=== PATIENT | female | born 1990 | race Caucasian/White ===

== ENCOUNTER 2021-04-23 10:00 | Emergency (ER) | payer OTHER, SELFPAY ==
[2021-04-23 10:10] VITALS: BP 132/96; PULSE 91; RESP 14; TEMP 37.1; O2SAT 98
--- NOTE | 2021-04-23 10:36 | ED.EYEPROB ---
HPI - Eye Problem General Chief complaint: Eye Problems Stated complaint: Eye Problem Time Seen by Provider: 04/23/21 10:24 Source: patient and RN notes reviewed Mode of arrival: ambulatory Limitations: no limitations History of Present Illness HPI Narrative: Patient presents today complaining of right eye redness, itching, and white drainage with right maxillary sinus tenderness since yesterday. 1 week ago she was seen at a different urgent care for right neck lymph node tenderness and swelling. She had negative influenza and strep tests at that time and was told she strained her neck and has been treating herself as such. Since yesterday she has been treating her eye with [id number] eyedrops with mild relief. She has removed her contacts and has been wearing her glasses. Denies foreign body sensation or vision changes. MD chief complaint: eye redness Related Data Home Medications Medication Instructions Recorded Confirmed citalopram 20 mg PO DAILY 04/23/21 04/23/21 labetalol 200 mg PO Q12H 04/23/21 04/23/21 Allergies Allergy/AdvReac Type Severity Reaction Status Date / Time No Known Allergies Allergy Verified 04/23/21 10:16 Review of Systems Review of Systems: CONSTITUTIONAL: Denies body aches, fever, chills, or sweats. EYES: Denies visual changes. + Right eye redness, drainage. ENT: Denies rhinorrhea, congestion, sore throat, or otalgia.+ Right maxillary sinus tenderness CARDIOVASCULAR: Denies chest pain, palpitations, or edema. RESPIRATORY: Denies cough or dyspnea. GASTROINTESTINAL: Denies abdominal pain, nausea, vomiting, or diarrhea. GENITOURINARY: Denies dysuria or hematuria. SKIN: Denies rash, itching, or wounds. MUSCULOSKELETAL: Denies back pain, joint pain, or myalgia. NEUROLOGIC: Denies headache, numbness, tingling, or weakness. PSYCH: Denies depression or anxiety. [facility] Past Medical History Medical History (Updated 04/23/21 @ 10:42 by Michelle Mata, [employer], ) Anxiety Depression Hypertension Comments At time of signature, I have reviewed and agree with nursing past medical, surgical, social and family history unless otherwise noted. Please see nursing chart for further information. There is no relevant family history pertinent to the presenting complaint Exam Narrative: GENERAL: Well-appearing, well-nourished, and in no acute distress. HEAD: Normocephalic, atraumatic. EYES: EOMI. PERRL. Right eye: Moderately injected. No active drainage. Lids and lashes normal. Left eye normal. ENT: Mucous membranes pink and moist. Nares clear. No rhinorrhea. Right maxillary sinus tenderness and mild edema noted. NECK: Normal AROM. Supple. No lymphadenopathy. CHEST: No respiratory distress. EXTREMITIES: Normal range of motion. No edema. SKIN: Warm, dry, no rash. Capillary refill normal. Normal skin turgor. NEURO: No focal deficits. Alert and oriented x3. Gait steady. PSYCH: Normal affect. No signs of depression or anxiety. Course Vital Signs Vital signs: Vital Signs Temperature 98.7 F 04/23/21 10:10 Pulse Rate 91 04/23/21 10:10 Respiratory Rate 14 04/23/21 10:10 Blood Pressure 132/96 H 04/23/21 10:10 Pulse Oximetry 98 04/23/21 10:10 Temperature 98.7 F 04/23/21 10:10 Pulse Rate 91 04/23/21 10:10 Respiratory Rate 14 04/23/21 10:10 Blood Pressure 132/96 H 04/23/21 10:10 Pulse Oximetry 98 04/23/21 10:10 Reviewed. Pt has been instructed to follow up with her PCP regarding her elevated blood pressure today. MDM - Eye Problem Differential Diagnosis Differential diagnosis: Likely corneal abrasion, conjunctivitis, periorbital cellulitis and other (Sinusitis) Critical Care Time Critical Care Time Critical Care Time: No Discharge Plan Discharge Clinical Impression: Bacterial conjunctivitis Sinusitis Qualifiers: Sinusitis location: maxillary Chronicity: acute Recurrence: non-recurrent Qualified Code(s): J01.00 - Acute maxillary sinusitis,
== END 2021-04-23 10:45 | disposition home or self-care (01) ==
PROVIDERS: Emergency Provider Nurse Practitioner; PCP Family Medicine
DX: J01.00 Acute maxillary sinusitis, unspecified (principal); I10 Essential (primary) hypertension; F41.9 Anxiety disorder, unspecified; F32.9 Major depressive disorder, single episode, unspecified
CPT/HCPCS: 99213; G0463

== ENCOUNTER 2022-03-31 13:55 | Emergency (ER) | payer OTHER, SELFPAY ==
[2022-03-31 14:20] VITALS: BP 117/85; PULSE 91; RESP 20; TEMP 36.6; O2SAT 100
--- NOTE | 2022-03-31 17:20 | ED.EYEPROB ---
HPI - Eye Problem General Chief complaint: Eye Problems Stated complaint: Eye Problem Time Seen by Provider: 03/31/22 17:20 Source: patient, RN notes reviewed and old records reviewed Mode of arrival: ambulatory Limitations: no limitations History of Present Illness HPI Narrative: 31-year-old female who presents to [facility] with complaints of right eye redness with swelling and drainage since yesterday with left eye redness and matting noted this morning. Patient reports that her daughter had pink eye last week. Patient denies any visual changes or any sharp pain to her eyes. Patient reports that she has used warm compresses to her eyes this morning to cleanse her eye has not used any OTC eye drop. MD chief complaint: eye pain, eye redness and other (itching and drainage) Onset (ago): day(s) (day 2 of symptoms) Severity scale (1-10): 3 Treatments Prior to Arrival: other (warm eye compresses to cleanse eyes) Related Data Home Medications Medication Instructions Recorded Confirmed citalopram 20 mg tablet 20 mg PO DAILY 04/23/21 04/23/21 lisinopril 03/31/22 Allergies Allergy/AdvReac Type Severity Reaction Status Date / Time No Known Allergies Allergy Verified 04/23/21 10:16 Review of Systems Review of Systems: CONSTITUTIONAL: Denies fever, chills, or sweats. EYES: Denies visual changes. Reports redness, irritation, discharge to bilateral eyes with itching. ENT: Denies rhinorrhea, congestion, sore throat, or otalgia. CARDIOVASCULAR: Denies chest pain, palpitations, or edema. RESPIRATORY: Denies cough or dyspnea. SKIN: Denies rash or itching. NEUROLOGIC: Denies headache All systems reviewed & are unremarkable except as noted in HPI and below PMFSH Past Medical History Medical History (Updated 04/01/22 @ 00:00 by Esteban Sidhu) Anxiety Depression Hypertension Social History Social History (Updated 04/07/22 @ 14:13 by Nancy Chen NP) Smoking status: Never smoker Alcohol intake: unknown Substance use type: does not use Living arrangements: with family Gender identity (if verbalized by the patient): Female Comments At time of signature, agree with nursing past medical, surgical, social and family history. There is no relevant family history pertinent to the presenting complaint Exam Narrative: GENERAL: Well-appearing, well-nourished, and in no acute distress. HEAD: Normocephalic, atraumatic. EYES: PERRLA and EOMI. Upper and lower eyelids unremarkable. No periorbital cellulitis noted. Sclera and conjunctivae injected bilaterally with yellow tinged drainage and itching. ENT: Nares clear, no rhinorrhea or epistaxis. Mucous membranes moist. NECK: Supple.no lymphadenopathy CHEST: Clear to auscultation. No respiratory distress. HEART: Regular rate and rhythm. No murmur heard. Normal peripheral pulses. SKIN: Warm, dry, no rash. NEURO: No focal deficits. Alert and oriented x3. Course Course Emergency Course: Patient is aware of diagnosis, understands and agrees to treatment plan. Anticipatory guidance given. Patient agrees to follow-up as directed and is aware of reasons to seek care at the emergency department. Portions of this record may have been created with voice recognition software Level of Care: Express Care Visit Vital Signs Vital signs: Vital Signs Temperature 36.6 C 03/31/22 14:20 Pulse Rate 91 03/31/22 14:20 Respiratory Rate 20 03/31/22 14:20 Blood Pressure 117/85 03/31/22 14:20 Pulse Oximetry 100 03/31/22 14:20 Oxygen Delivery Room Air 03/31/22 14:20 Temperature 36.6 C 03/31/22 14:20 Pulse Rate 91 03/31/22 14:20 Respiratory Rate 20 03/31/22 14:20 Blood Pressure 117/85 03/31/22 14:20 Pulse Oximetry 100 03/31/22 14:20 Oxygen Delivery Room Air 03/31/22 14:20 Reviewed MDM - Eye Problem MDM Narrative Medical decision making narrative: Consideration of the following conditions may be warranted for the presenting problem,
== END 2022-03-31 17:54 | disposition home or self-care (01) ==
PROVIDERS: Emergency Provider Registered Nurse; PCP Family Medicine
DX: H10.9 Unspecified conjunctivitis (principal); I10 Essential (primary) hypertension; F41.8 Other specified anxiety disorders
CPT/HCPCS: 99213; G0463